=== PATIENT | female | born 1955 | race Caucasian/White ===

== ENCOUNTER → 2023-06-29 13:33 | Outpatient (REF) | payer MEDICARE, SELFPAY | LOC: HWRAD 13:33 | PROVIDERS: ATTENDING PHYSICIAN Obstetrics & Gynecology; FAMILY PHYSICIAN Internal Medicine | DX: Z12.31 Encounter for screening mammogram for malignant neoplasm of breast (principal); Z78.0 Asymptomatic menopausal state | CPT/HCPCS: 77063; 77067; 77080 ==

== ENCOUNTER → 2023-07-19 09:33 | Outpatient (REF) | payer MEDICARE, SELFPAY | LOC: EMG 09:33 | PROVIDERS: ATTENDING PHYSICIAN Pain Medicine Interventional Pain Medicine | DX: M47.816 Spondylosis without myelopathy or radiculopathy, lumbar region (principal); R20.0 Anesthesia of skin; M54.16 Radiculopathy, lumbar region | CPT/HCPCS: 95886; 95909 ==

== ENCOUNTER → 2023-10-05 14:07 | Outpatient (REF) | payer MEDICARE, SELFPAY | LOC: MRI 3T 14:07 | PROVIDERS: ATTENDING PHYSICIAN Pain Medicine Interventional Pain Medicine; FAMILY PHYSICIAN Internal Medicine | DX: M54.16 Radiculopathy, lumbar region (principal) | CPT/HCPCS: 72148 ==

== ENCOUNTER → 2023-10-18 14:31 | Outpatient (REF) | payer MEDICARE, SELFPAY | LOC: HWRAD 14:31 | PROVIDERS: ATTENDING PHYSICIAN Orthopaedic Surgery; FAMILY PHYSICIAN Internal Medicine | DX: M54.50 Low back pain, unspecified (principal) | CPT/HCPCS: 74176 ==

== ENCOUNTER → 2024-01-12 15:27 | Outpatient (REF) | payer MEDICARE, SELFPAY | LOC: HWRAD 15:27 | PROVIDERS: ATTENDING PHYSICIAN Anesthesiology Pain Medicine; FAMILY PHYSICIAN Internal Medicine | DX: M25.551 Pain in right hip (principal); M25.552 Pain in left hip; M25.562 Pain in left knee; M25.561 Pain in right knee | CPT/HCPCS: 73523; 73564 ==

== ENCOUNTER → 2024-06-06 14:07 | Outpatient (REF) | payer MEDICARE, SELFPAY | LOC: HWRAD 14:07 | PROVIDERS: ATTENDING PHYSICIAN Anesthesiology Pain Medicine; FAMILY PHYSICIAN Internal Medicine | DX: M79.605 Pain in left leg (principal); M25.552 Pain in left hip | CPT/HCPCS: 73502; 73552 ==

== ENCOUNTER → 2024-09-04 12:49 | Outpatient (REF) | payer MEDICARE, SELFPAY | LOC: HWCARD 12:49 | PROVIDERS: ATTENDING PHYSICIAN Pain Medicine Interventional Pain Medicine; FAMILY PHYSICIAN Internal Medicine | DX: Z01.818 Encounter for other preprocedural examination (principal) | CPT/HCPCS: 93005 ==

== ENCOUNTER → 2025-05-15 14:18 | Outpatient (REF) | payer MEDICARE, SELFPAY | LOC: HWWDC 14:18 | PROVIDERS: ATTENDING PHYSICIAN Obstetrics & Gynecology; FAMILY PHYSICIAN Internal Medicine | DX: Z12.31 Encounter for screening mammogram for malignant neoplasm of breast (principal) | CPT/HCPCS: 77063; 77067 ==